=== PATIENT | female | born 1980 | race Hispanic/Latino ===

== ENCOUNTER 2016-07-12 03:39 | Emergency (ER) | payer OTHER ==
[~2016-07-12] VITALS: Ht 157.5 cm; Wt 75.0 kg
[~2016-07-12 03:39] MED LIST: Acetaminophen PO; HYDR-4150 PO; OMEP20TA86 PO; PANT40TA2 PO; PREN1TAB47 PO
[2016-07-12 03:46] VITALS: BP 137/90; PULSE 71; RESP 18; O2SAT 100
--- NOTE | 2016-07-12 03:54 | ED.REPORT ---
HPI-Abd Pain F Under 40 Date of Service Jul 12, 2016 ED Provider: Marc Calvo MD Patient is a 35 year old female who presents to the ED complaining of abdominal pain that began 2 days ago. She states that the pain is severe and it prevented her from sleeping tonight. Patient has also been on Augmentin for the past 2 days to treat a sinus infection, with symptoms of a sinus infection ongoing for several weeks. Patient's daughter came down with GI symptoms this past weekend, with the patient developing nausea, vomiting, and diarrhea 4 days ago. Patient is unsure if her abdominal pain is related to her GI complaints or due to her Augmentin. Patient also reports being bloated and passing a lot of gas.She reports radiation of her pain to her back. She denies dysuria or fever. Patient has previously had an appendectomy and cholecystectomy. Nursing Notes Stated Complaint: ABDOMINAL PAIN Chief Complaint: Female Abdominal Pain Nursing Notes Reviewed: Yes Allergies: Coded Allergies: oxycodone (Verified Allergy, Unknown, 07/12/16) Scheduled Omeprazole-Expunged Drug, Do Not Renew! (Omeprazole-Expunged Drug, Do Not Renew! ) 20 Mg Tablet.dr 20 MG PO DAILY Pantoprazole DR (Protonix) 40 Mg Tablet 40 MG PO DAILY Vit/Fe Fumarate/Fa-Expunged Drug, Do (-Expunged Drug, Do Not Renew!) 1 Tab Tablet 1 TAB PO DAILY Scheduled PRN ([Acetaminophen]) 325 MG TABLET 650 MG PO Q4H PRN PRN For Pain Hydrocodone/Acetaminophen ([place] 5-325 Tablet) 1 Tablet Tablet 1-2 TABLET PO Q4H PRN PRN For Pain General Time Seen by MD: 03:53 Chief Complaint Abdominal pain Hx Obtained From: Patient Arrived By: Walk-in Sudden in Onset?: No Onset Occurred: 2 days ago Symptom Duration: Since onset Location: : Epigastric Quality: Painful Severity: Current: Moderate Severity: Maximum: Moderate Recent Healthcare: No recent doctor visit, No recent hospitalization Similar Sx Previous: No Past Medical History Past Medical History Chronic yeast infections Past Surgical History Reports: Appendectomy, Cholecystectomy Smoking History Never Smoker Social History Alcohol Use: Denies alcohol use Drug Use: Denies drug use Other Social History: Good social support, , Lives with children, Local resident Ambulatory Status Independent Review of Systems Constitutional: Denies: Fever GI: Reports: Abdominal pain, Diarrhea, Nausea, Vomiting Female: Reports: Flank pain, Denies: Dysuria Complete sys rev & neg: except as marked. Physical Exam Initial Vital Signs Vital Signs (First) Date Time Temp Pulse Resp B/P Pulse Ox O2 Delivery O2 Flow Rate FiO2 07/12/16 03:46 36.6 71 18 137/90 100 Room Air Initial VS: Reviewed, Vital signs normal Head / Eyes: Atraumatic, Normocephalic, PERRL ENT: Mucous membranes moist, Conjunctiva normal, No scleral icterus Neck: Supple, Non-tender Extremities: Vascular intact, Neuro intact Skin: Warm, Dry, No cyanosis Neurologic: Alert, Oriented, Nonfocal Psychiatric: Mood/affect normal, Behavior normal, Normal thought content General/Constitutional: Awake, Alert, Well hydrated Distress / Hydration: Positive: Distress moderate Respiratory / Chest: Breath sounds NL, Breath sounds = bilat, No respiratory distress, No rales, No rhonchi, No wheezing Cardiovascular: Heart rate NL, Regular rhythm, Heart sounds NL Abdomen: Soft, No distention (or bloating) Tenderness/Guarding/Rebound: Positive: Tender diffuse (moderate, not localized) Back: No midline vertebral tend, No CVA tenderness Interpretation & Diagnostics Lab Results Interpretation Result Diagram: 07/12/16 0400 07/12/16 0400 Test 07/12/16 04:00 07/12/16 05:00 White Blood Count 5.5th/mm3 (3.8-10.1) Red Blood Count 4.69mil/mm3 (3.90-5.20) Hemoglobin 13.8g/dL (12.0-15.6) Hematocrit 39.9% (35.0-46.0) Mean Corpuscular Volume 85.1fL (81-100) Mean Corpuscular Hemoglobin 29.4pg (27.0-35.0) Mean Corpuscular Hemoglobin Concent 34.6% (32.0-37.0) Red Cell Distribution Width 12.3% (12.3-15.4) Platelet Count 249bil/L (150-400) Neutrophils (%) (Auto) 43.3% (40-74) Lymphocytes (%) (Auto) 41.7% (14-46) Monocytes (%) (Auto) 7.1% (4-12) Eosinophils (%) (Auto) 7.3% (0-5) Basophils (%) (Auto) 0.4% (0-3) Sodium Level 141mEq/L (134-144) Potassium Level 4.0mEq/L (3.5-5.2) Chloride Level 104mEq/L (97-108) Carbon Dioxide Level 23mmol/L (18-29) Blood Urea Nitrogen 16mg/dL (6-20) Creatinine 0.32mg/dL (0.57-1.00) Estimat Glomerular Filtration Rate 335mL/min (>59) Glucose Level 108mg/dL (60-99) Calcium Level 9.0mg/dL (8.5-10.1) Magnesium Level 2.0mg/dL (1.6-2.6) Total Bilirubin 0.3mg/dL (0.0-1.2) Aspartate Amino Transf (AST/SGOT) 16U/L (0-50) Alanine Aminotransferase (ALT/SGPT) 12U/L (0-32) Alkaline Phosphatase 71U/L (25-150) Total Protein 7.2g/dL (6.4-8.4) Albumin 4.4g/dL (3.4-5.0) Lipase 23U/L (13-60) Urine Color Yellow (YELLOW) Urine Appearance Hazy (CLEAR,HAZY) Urine pH 6.5 (5.0-8.0) Urine Specific [place] 1.020 (1.003-1.035) Urine Protein Negativemg/dL (NEG,TRACE) Urine Glucose (UA) Negativemg/dL (NEGATIVE) Urine Ketones Negativemg/dL (NEGATIVE) Urine Occult Blood Moderate (NEGATIVE) Urine Nitrite Negative (NEGATIVE) Urine Bilirubin Negative (NEGATIVE) Urine Urobilinogen Normalmg/dL (NORMAL) Urine Leukocyte Esterase Negative (NEGATIVE) Urine RBC 3-10/hpf (0-2) Urine WBC 0-5/hpf (0-5) Urine Epithelial Cells Moderate/hpf (NONE-MOD) Urine Crystals None seen (NONE SEEN) Urine Bacteria Few/hpf (NONE-FEW) Urine Hyaline Casts None/lpf (NONE) Urine Granular Casts None seen (NONE SEEN) Urine Waxy Casts None seen (NONE SEEN) Urine Red Blood Cell Casts None seen (NONE SEEN) Urine White Blood Cell Casts None seen (NONE SEEN) Urine Mucus Present (None Seen) Urine Trichomonas None seen (NONE SEEN) Urine Yeast None (NONE SEEN) Urinalysis Comment None Urine Culture Reflexed Not indicated Re-Eval/Medical Decision Med Decision/Clinical Course 35-year-old female who presents with upper abdominal pain. She has had previous cholecystectomy and appendectomy. Workup was initiated, she was given a liter of fluid, and she was given ondansetron and Dilaudid.. Her pain actually increased during her ER stay despite pain medication. Reexamination revealed upper abdominal tenderness. CT scan was ordered and her care is being turned over change of shift to Dr. Camilo. Source of Hx: Old records Re-Evaluation/Progress : Time of Eval: 05:44 Re-Evaluation/Progress Note: Rechecked the patient, who states that her pain is now more severe. No acute problem on labs, so will order a CT scan of her abdomen. Counseled Regarding: Diagnosis, Lab results Discharge & Departure Shift Change Sign-Out Patient Care Transferred: Yes Discussed Complaint(s): Yes Laboratory Evaluation: Lab evaluation discussed Imaging Studies: Ordered, not yet done Primary Impression: Abdominal pain Abdominal location: generalized Qualified Code: R10.84 - Generalized abdominal pain Disposition: Home Discharge Condition All VS Reviewed: Yes Condition: Stable Referrals: Naresh Bains MD (PCP) Care Transferred to: Dr. Camilo Care Transferred at: 06:00 Scribe Attestation Portions of this note were transcribed by Jaye Nair. I, Dr. Calvo personally performed the history, physical exam and medical decision-making; I reviewed and confirmed the accuracy of the information in the transcribed note. Signed by: Maria Isabel Sousa, 07/12/2016 1925 copies to: Naresh Bains MD, Howard L MD Jul 12, 2016 03:54 Jaye Nair Jul 12, 2016 04:11
[2016-07-12] MEDS ORDERED: Pantoprazole 4 mg/mL 10 mL Inj IVPUSH ONE (04:20)
[2016-07-12] MEDS ORDERED: 0.9% Sodium Chloride 1,000 ML IV ONE (04:20)
[2016-07-12 04:36] LABS: BASOPHILS % (AUTO) 0.4 % (0-3); EOSINOPHILS % (AUTO) 7.3 % (0-5); MONOCYTES % (AUTO) 7.1 % (4-12); Mean Corpuscular Hemoglobin 29.4 pg (27.0-35.0); Mean Corpuscular Volume 85.1 fL (81-100); NEUTROPHILS % (AUTO) 43.3 % (40-74); Platelet Count 249 bil/L (150-400)
[2016-07-12] MEDS: HYDROmorphone 0.5 mg/0.5 mL iSecure Syringe IVPUSH PRN ×3 (04:38→05:46)
[2016-07-12] MEDS: Ondansetron 2 mg/mL 2 mL Inj IVPUSH PRN ×2 (04:38→05:46)
[2016-07-12 05:41] LABS: APPEARANCE,URINE HAZY (CLEAR,HAZY); COLOR,URINE YELLOW (YELLOW); OCCULT BLOOD,URINE MODERATE (NEGATIVE); PH,URINE 6.5 (5.0-8.0); UROBILINOGEN,URINE NORMAL (NORMAL)
[2016-07-12 05:51] VITALS: BP 142/79; PULSE 69; RESP 16; O2SAT 94
[2016-07-12] MEDS ORDERED: Promethazine Inj 25 MG in Dextrose 5%-Pha MIX 50 ML IV ONE (08:00)
[2016-07-12 09:09] VITALS: BP 120/65; PULSE 66; RESP 14; O2SAT 100
[2016-07-12] MEDS ORDERED: PROM25TA14 PO (09:55)
[2016-07-12 10:20] VITALS: BP 108/48; PULSE 71; RESP 23; O2SAT 100
[2016-07-12 10:21] VITALS: BP 108/48; PULSE 71; RESP 23; O2SAT 100
--- NOTE | 2016-07-12 10:31 | DRSVH ---
PROCEDURE: CT ABDOMEN AND PELVIS WITH CONTRAST (PNL-7102) INDICATIONS: abd pain TECHNIQUE: After the administration of intravenous contrast, 5 mm thick sections acquired from the diaphragm to the symphysis. 5 mm coronal and sagittal reformats were acquired. For radiation dose reduction, the following was used: automated exposure control, adjustment of mA and/or kV according to patient siz e. COMPARISON: [facility], CT, ABD/PELVIS W/CON (PNL), 12/25/2011, 6:05. [facility], MR, ABDOMEN W/O CONTRAST, 07/03/2013, 15:22. [facility], CT, CT ABD PELVIS W CON, , 2:10. FINDINGS: Image quality: Excellent. ABDOMEN: Lung bases: Lung bases are clear. Heart size is normal. Solid organs: Liver and spleen are normal in size and enhancement. Gallbladder is mildly dilated li mike related to prior cholecystectomy. surgically absent. Biliary system is non dilated. Pancreas e nhances normally. No adrenal nodules. Kidneys demonstrate normal size and enhancement, without hydr onephrosis. Peritoneum and bowel: Bowel loops demonstrate normal wall thickness and caliber. No free fluid or a ir. The appendix is not definitely visualized. No rheumatoid changes noted adjacent to the cecum. Nodes and vessels: No retroperitoneal or mesenteric adenopathy by size criteria. Aorta and inferior vena cava are normal in size. Miscellaneous: No ventral hernias. PELVIS: Genitourinary: Bladder wall thickness is normal. Miscellaneous: No inguinal hernias or adenopathy. Bones: No suspicious bony lesions. No vertebral body compression fractures. IMPRESSION: 1. No acute disease process. 2. No dilated loops of bowel. 3. No free fluid or air. 4. No inflammatory changes. Dictated by: Nikki Nolan MD, PhD on 07/12/2016 at 10:13 Approved by: Nikki Nolan MD, PhD on 07/12/2016 at 10:30
== END 2016-07-12 10:22 | disposition home or self-care (01) ==
LOC: SED 03:39
DX: R10.9 Unspecified abdominal pain (principal); Z90.49 Acquired absence of other specified parts of digestive tract; Z88.5 Allergy status to narcotic agent
CPT/HCPCS: 36415; 74177; 80053; 81000; 83690; 83735; 85025; 96374; 96375; 96376; 99285; J1170; J1200; J2405; J2550; J7030; Q9967

== ENCOUNTER 2016-07-16 18:32 | Emergency (ER) | payer OTHER ==
[~2016-07-16] VITALS: Ht 157.5 cm; Wt 75.9 kg
[~2016-07-16 18:32] MED LIST changes: +PROM25TA14 PO
[2016-07-16 19:28] VITALS: BP 131/93; PULSE 75; RESP 16; O2SAT 100
--- NOTE | 2016-07-16 21:05 | ED.REPORT ---
HPI-Abd Pain F Under 40 Date of Service Jul 16, 2016 ED Provider: Trent Cliff Patient is a 35 year old female who presents to the ED from urgent care complaining of lower abdominal pain with radiation to her back 1330 after walk with her children. She was seen in the department 5 days ago for abdominal pain and N,V,D and was diagnosed with possible side effect of amoxicillin. She had not had a BM for a few days until yesterday when she had loose stool. Her abdominal pain returned and diarrhea had not improved by tonight so she went to urgent care for a second opinion and they sent her back to the emergency department. She denies nausea, vomiting, diaphoresis, hematochezia, or any other symptoms. Nursing Notes Stated Complaint: PELVIC,BACK PAIN Chief Complaint: Female Abdominal Pain Nursing Notes Reviewed: Yes Allergies: Coded Allergies: oxycodone (Verified Allergy, Unknown, 07/16/16) Uncoded Allergies: AMOX (Adverse Reaction, Intermediate, Nausea, 07/16/16) Scheduled Lactulose (Lactulose) 20 Gm/30 Ml Solution 20 GM PO QID Omeprazole-Expunged Drug, Do Not Renew! (Omeprazole-Expunged Drug, Do Not Renew! ) 20 Mg Tablet.dr 20 MG PO DAILY Pantoprazole DR (Protonix) 40 Mg Tablet 40 MG PO DAILY Vit/Fe Fumarate/Fa-Expunged Drug, Do (-Expunged Drug, Do Not Renew!) 1 Tab Tablet 1 TAB PO DAILY Scheduled PRN ([Acetaminophen]) 325 MG TABLET 650 MG PO Q4H PRN PRN For Pain Hydrocodone/Acetaminophen ([place] 5-325 Tablet) 1 Tablet Tablet 1-2 TABLET PO Q4H PRN PRN For Pain Promethazine (Promethazine) 25 Mg Tablet 25-50 MG PO Q6H PRN PRN For Nausea General Time Seen by MD: 21:04 Chief Complaint Abdominal pain Hx Obtained From: Patient Arrived By: Walk-in Sudden in Onset?: Yes Recent Healthcare: Recent doctor visit Similar Sx Previous: Yes Past Medical History Past Medical History Chronic yeast infections Anxiety Reports: Depression Past Surgical History Reports: Appendectomy, Cholecystectomy Smoking History Never Smoker Social History Alcohol Use: Denies alcohol use Drug Use: Denies drug use Other Social History: Good social support, , Lives with children, Local resident Ambulatory Status Independent Review of Systems GI: Reports: Abdominal pain, Diarrhea, Denies: Hematochezia, Nausea, Vomiting Musculoskeletal: Reports: Back pain Complete sys rev & neg: except as marked. Skin: Denies Diaphoresis Physical Exam Initial Vital Signs Vital Signs (First) Date Time Temp Pulse Resp B/P Pulse Ox O2 Delivery O2 Flow Rate FiO2 07/16/16 19:28 36.3 75 16 131/93 100 Room Air Initial VS: Reviewed Head / Eyes: Atraumatic, Normocephalic Skin: Warm, Dry Neurologic: Alert, Oriented, Nonfocal Psychiatric: Mood/affect normal, Behavior normal, Normal thought content General/Constitutional: Awake, Alert, Well developed Respiratory / Chest: Breath sounds NL, Breath sounds = bilat, No respiratory distress Cardiovascular: Heart rate NL, Regular rhythm, Heart sounds NL, No gallop, No murmurs, No rubs Abdomen: No guarding, No rebound Tenderness/Guarding/Rebound: Positive: Tender RLQ... (Minimal) Back: No CVA tenderness Interpretation & Diagnostics Lab Results Interpretation Result Diagram: 07/16/16213407/16/162134 Test 07/16/16 20:32 07/16/16 21:35 Urine Color Yellow (YELLOW) Urine Appearance Clear (CLEAR,HAZY) Urine pH 7.0 (5.0-8.0) Urine Specific [place] 1.020 (1.003-1.035) Urine Protein Negativemg/dL (NEG,TRACE) Urine Glucose (UA) Negativemg/dL (NEGATIVE) Urine Ketones Negativemg/dL (NEGATIVE) Urine Occult Blood Negative (NEGATIVE) Urine Nitrite Negative (NEGATIVE) Urine Bilirubin Negative (NEGATIVE) Urine Urobilinogen 1.0mg/dL (NORMAL) Urine Leukocyte Esterase Negative (NEGATIVE) Urine RBC 0-2/hpf (0-2) Urine WBC 0-5/hpf (0-5) Urine Epithelial Cells Moderate/hpf (NONE-MOD) Urine Crystals Oxalic acid crystals (NONE Urine Bacteria None/hpf (NONE-FEW) Urine Hyaline Casts None/lpf (NONE) Urine Granular Casts None seen (NONE SEEN) Urine Waxy Casts None seen (NONE SEEN) Urine Red Blood Cell Casts None seen (NONE SEEN) Urine White Blood Cell Casts None seen (NONE SEEN) Urine Mucus None seen (None Seen) Urine Trichomonas None seen (NONE SEEN) Urine Yeast None (NONE SEEN) Urinalysis Comment None Urine Culture Reflexed Not indicated Hold Urine Received (Received) White Blood Count 6.2th/mm3 (3.8-10.1) Red Blood Count 4.66mil/mm3 (3.90-5.20) Hemoglobin 13.6g/dL (12.0-15.6) Hematocrit 39.6% (35.0-46.0) Mean Corpuscular Volume 85.0fL (81-100) Mean Corpuscular Hemoglobin 29.2pg (27.0-35.0) Mean Corpuscular Hemoglobin Concent 34.3% (32.0-37.0) Red Cell Distribution Width 12.3% (12.3-15.4) Platelet Count 279bil/L (150-400) Neutrophils (%) (Auto) 49.4% (40-74) Lymphocytes (%) (Auto) 39.8% (14-46) Monocytes (%) (Auto) 4.5% (4-12) Eosinophils (%) (Auto) 5.8% (0-5) Basophils (%) (Auto) 0.3% (0-3) Prothrombin Time 10.1sec (8.1-12.5) Prothromb Time International Ratio 0.95ratio Sodium Level 139mEq/L (134-144) Potassium Level 4.0mEq/L (3.5-5.2) Chloride Level 101mEq/L (97-108) Carbon Dioxide Level 26mmol/L (18-29) Blood Urea Nitrogen 17mg/dL (6-20) Creatinine 0.41mg/dL (0.57-1.00) Estimat Glomerular Filtration Rate 251mL/min (>59) Glucose Level 94mg/dL (60-99) Lactic Acid Level 0.7mmol/L (0.4-2.0) Calcium Level 9.1mg/dL (8.5-10.1) Magnesium Level 2.0mg/dL (1.6-2.6) Total Bilirubin 0.2mg/dL (0.0-1.2) Aspartate Amino Transf (AST/SGOT) 20U/L (0-50) Alanine Aminotransferase (ALT/SGPT) 53U/L (0-32) Alkaline Phosphatase 81U/L (25-150) Total Protein 7.2g/dL (6.4-8.4) Albumin 4.4g/dL (3.4-5.0) Lipase 37U/L (13-60) CT Abd / Pelvis Interpretation IMPRESSION: Question mild gastroenteritis or ileus. Severe fecal loading of the colon. Follicular cyst of the left ovary. Trace intrahepatic ductal dilation, nonspecific, probably relates to cholecystectomy. Chiara Ceballos M.D. Study type: Abdominal CT IV contrast Interpretation / Wet Read by: Interpret - Radiologist Re-Eval/Medical Decision Med Decision/Clinical Course Med Decision/Clinical Course: 35-year-old with abdominal pain and second presentation for this problem. She just underwent CT scanning and had a negative evaluation. She has had constipation clinically. She states that she is not leaving without an answer. They started her considerable anxiety about some significant underlying issue, CT was ultimately repeated. Significant constipation is noted but no other findings. We will proceed with clean out with lactulose and plan for follow-up with PCP. Advised to avoid opioid pain meds and prefer nonsteroidals. Discharged in stable condition. Re-Evaluation/Progress : Time of Eval: 00:17 )( Re-Eval Abdomen: Soft Re-Evaluation/Progress Note: Discussed imaging results and plan for discharge. Patient understands and agrees with plan. All questions addressed at this time. Counseled Regarding: Diagnosis, Lab results, Need for follow-up, When/why to return to ED Discharge & Departure Primary Impression: Constipation Constipation type: slow transit constipation Qualified Code: K59.01 - Slow transit constipation Additional Impressions: Abdominal pain Abdominal location: right lower quadrant Qualified Code: R10.31 - Right lower quadrant pain Anxiety Disposition: Home Discharge Condition All VS Reviewed: Yes Condition: Improved Patient Instructions: Constipation (ED) Referrals: Naresh Bains MD (PCP) Scribe Attestation Portions of this note were transcribed by Kaylah Bonilla. I, Dr. Newman personally performed the history, physical exam and medical decision-making; I reviewed and confirmed the accuracy of the information in the transcribed note. Signed by: Kaylah Bonilla 07/17/16, 0027 copies to: Naresh Bains MD, Christopher W MD Jul 16, 2016 21:05 KAYLAH BONILLA Jul 16, 2016 21:15
[2016-07-16] MEDS ORDERED: 0.9% Sodium Chloride 1,000 ML IV ONE (21:13)
[2016-07-16] MEDS ORDERED: Pantoprazole 4 mg/mL 10 mL Inj IVPUSH ONE (21:15)
[2016-07-16] MEDS ORDERED: Ketorolac 15 mg/mL Inj IVPUSH ONE (21:15)
[2016-07-16 21:34] LABS: APPEARANCE,URINE CLEAR (CLEAR,HAZY); COLOR,URINE YELLOW (YELLOW)
[2016-07-16 21:35] LABS: OCCULT BLOOD,URINE NEGATIVE (NEGATIVE)
[2016-07-16 21:42] LABS: BASOPHILS % (AUTO) 0.3 % (0-3); EOSINOPHILS % (AUTO) 5.8 % (0-5); MONOCYTES % (AUTO) 4.5 % (4-12); Mean Corpuscular Hemoglobin 29.2 pg (27.0-35.0); NEUTROPHILS % (AUTO) 49.4 % (40-74); Platelet Count 279 bil/L (150-400)
[2016-07-16 22:16] LABS: INR 0.95 ratio
[2016-07-16 22:32] VITALS: BP 114/72; PULSE 75; RESP 16; O2SAT 99
[2016-07-16] MEDS ORDERED: HYDROmorphone 0.5 mg/0.5 mL iSecure Syringe IVPUSH ONE (23:00)
[2016-07-17] MEDS ORDERED: Lactulose 20 Gm/30 mL 30 mL Syrup PO STA (00:20)
[2016-07-17] MEDS ORDERED: LACT10SO60 PO (00:25)
[2016-07-17 00:38] VITALS: BP 99/68; PULSE 72; RESP 16; O2SAT 96
--- NOTE | 2016-07-17 11:26 | DRSVH ---
PROCEDURE: CT ABDOMEN AND PELVIS WITH CONTRAST (PNL-7102) INDICATIONS: rlq pain, s/p appy, chinedu (remote) TECHNIQUE: After the administration of intravenous contrast, 5 mm thick sections acquired from the diaphragm to the symphysis. 5 mm coronal and sagittal reformats were acquired. For radiation dose reduction, the following was used: automated exposure control, adjustment of mA and/or kV according to patient hunter e. COMPARISON: [facility], CT, CT ABD PELVIS W CON, 07/12/2016, 6:20. FINDINGS: Image quality: Excellent. ABDOMEN: Lung bases: Lung bases are clear. Heart size is normal. Solid organs: Liver and spleen are normal in size and enhancement. Gallbladder has been removed. Th ere is mild prominence of the intra-and extra ventricular system, unchanged. Pancreas enhances rosalinda lly. No adrenal nodules. Kidneys demonstrate normal size and enhancement, without hydronephrosis. Peritoneum and bowel: Bowel loops demonstrate a mild fluid-filled prominence of the small bowel, ove rall nonspecific. No free fluid or air. Nodes and vessels: No retroperitoneal or mesenteric adenopathy by size criteria. Aorta and inferior vena cava are normal in size. Miscellaneous: No ventral hernias. PELVIS: Genitourinary: Bladder wall thickness is normal. Miscellaneous: No inguinal hernias or adenopathy. Bones: No suspicious bony lesions. No vertebral body compression fractures. IMPRESSION: 1. Mild fluid-filled prominence of the small bowel, less prominent when compared to prior exam. This could be related to enteritis. Otherwise, stable interval exam compared to 07/12/16 without visualized acute cause of abdominal pain. Dictated by: Kimberly Kingsley M.D. on 07/17/2016 at 11:21 Approved by: Kimberly Kingsley M.D. on 07/17/2016 at 11:24
== END 2016-07-17 00:40 | disposition home or self-care (01) ==
LOC: SED 18:32
DX: K59.00 Constipation, unspecified (principal); R10.31 Right lower quadrant pain; F41.9 Anxiety disorder, unspecified; Z88.5 Allergy status to narcotic agent
CPT/HCPCS: 36415; 74177; 80053; 81000; 81025; 83605; 83690; 83735; 85025; 85610; 96361; 96374; 96375; 99285; J1170; J1885; J7030; Q9967